=== PATIENT | female | born 1960 | race Caucasian/White ===

== ENCOUNTER 2019-08-12 09:37 | Emergency (ER) | payer OTHER ==
[~2019-08-12] VITALS: Ht 160 cm; Wt 82.6 kg
[~2019-08-12 09:37] MED LIST: PERMETHRIN1 GM MC
[2019-08-12] MEDS ORDERED: AZELASTINE HCL6 ML (09:43)
[2019-08-12] MEDS ORDERED: CRESTOR20 MG (09:43)
[2019-08-12] MEDS ORDERED: DRAMAMINE LESS25 MG (09:44)
[2019-08-12] MEDS ORDERED: AMOX-CLAV 875-1 EACH PO (10:16)
== END 2019-08-12 10:26 | disposition home or self-care (01) ==
LOC: ER 09:37
DX: H66.92 Otitis media, unspecified, left ear (principal)

== ENCOUNTER 2019-08-19 23:55 | Emergency (ER) | payer OTHER ==
[~2019-08-19] VITALS: Ht 165.1 cm; Wt 82.6 kg
[~2019-08-19 23:55] MED LIST changes: +AMOX-CLAV 875-1 EACH PO; +AZELASTINE HCL6 ML; +CRESTOR20 MG; +DRAMAMINE LESS25 MG
== END 2019-08-20 12:53 | disposition home or self-care (01) ==
LOC: ER 23:55
DX: K57.32 Diverticulitis of large intestine without perforation or abscess without bleeding (principal); K76.0 Fatty (change of) liver, not elsewhere classified; H66.92 Otitis media, unspecified, left ear; R11.0 Nausea; R10.32 Left lower quadrant pain; R19.7 Diarrhea, unspecified

== ENCOUNTER 2022-01-31 12:30 | Emergency (ER) | payer OTHER ==
[~2022-01-31] VITALS: Ht 167.6 cm; Wt 87.1 kg
[2022-01-31] MEDS ORDERED: ACID REDUCER20 M1 (12:53)
[2022-01-31] MEDS ORDERED: MECLIZINE HCL25 MG PO (12:54)
[2022-01-31] MEDS ORDERED: FLONASE16 GM NS (12:55)
== END 2022-01-31 15:44 | disposition home or self-care (01) ==
LOC: ER 12:30
DX: M94.0 Chondrocostal junction syndrome [Tietze] (principal); I10 Essential (primary) hypertension

== ENCOUNTER 2023-01-02 08:18 | Emergency (ER) | payer OTHER ==
[~2023-01-02] VITALS: Ht 167.6 cm; Wt 87.1 kg
[~2023-01-02 08:18] MED LIST changes: +ACID REDUCER20 M1; +FLONASE16 GM NS; +MECLIZINE HCL25 MG PO
[2023-01-02] MEDS ORDERED: LIPOFEN150 MG (08:29)
[2023-01-02] MEDS ORDERED: MONTELUKAST SODI4 M1 (08:29)
[2023-01-02] MEDS ORDERED: BENTYL10 MG/1 ML (08:30)
[2023-01-02] MEDS ORDERED: TOPROL XL25 M1 (08:31)
[2023-01-02] MEDS ORDERED: MESALAMINE800 MG (08:31)
== END 2023-01-02 13:10 | disposition home or self-care (01) ==
LOC: ER 08:18
DX: T54.91XA Toxic effect of unspecified corrosive substance, accidental (unintentional), initial encounter (principal); J45.998 Other asthma; Y92.9 Unspecified place or not applicable; Z88.6 Allergy status to analgesic agent; E78.00 Pure hypercholesterolemia, unspecified; I10 Essential (primary) hypertension

== ENCOUNTER 2023-01-18 08:49 | Emergency (ER) | payer OTHER ==
[~2023-01-18] VITALS: Ht 167.6 cm; Wt 84.4 kg
[~2023-01-18 08:49] MED LIST changes: +BENTYL10 MG/1 ML; +LIPOFEN150 MG; +MESALAMINE800 MG; +MONTELUKAST SODI4 M1; +TOPROL XL25 M1
[2023-01-18] MEDS ORDERED: CIPRO500 MG PO (12:12)
[2023-01-18] MEDS ORDERED: METRONIDAZOLE500 MG PO (12:12)
[2023-01-18] MEDS ORDERED: INTESTINEX680 M1 PO (12:12)
== END 2023-01-18 12:49 | disposition home or self-care (01) ==
LOC: ER 08:49
DX: K57.92 Diverticulitis of intestine, part unspecified, without perforation or abscess without bleeding (principal); R10.12 Left upper quadrant pain; Z88.6 Allergy status to analgesic agent

== ENCOUNTER 2024-11-08 09:22 | Emergency (ER) | payer OTHER ==
[~2024-11-08] VITALS: Ht 167.6 cm; Wt 75.7 kg
[~2024-11-08 09:22] MED LIST changes: +CIPRO500 MG PO; +INTESTINEX680 M1 PO; +METRONIDAZOLE500 MG PO
[2024-11-08 11:25] LABS: HEMATOCRIT 41.6 % (36.0-45.00); HEMOGLOBIN 13.7 g/dL (12.0-15.00); MEAN CELL VOLUME 83.4 fL (80.00-100.00); MEAN CORPUSCULAR HEMOGLOBIN 27.5 pg (27.00-32.0); MEAN CORPUSCULAR HGB CONC 32.9 g/dl (32.0-36.0); PLATELET COUNT 242 K/uL (150-450); RED BLOOD COUNT 4.99 M/uL (4.00-6.00); RED CELL DISTRIBUTION WIDTH 13.2 % (11.5-14.5)
[2024-11-08] MEDS ORDERED: METHYLPREDNISOLONE SOD SUCC 125 MG VIAL ONE (13:22)
[2024-11-08] MEDS ORDERED: METHYLPREDNISOLONE SOD SUCC 125 MG VIAL IM ONE (13:30)
[2024-11-08] MEDS ORDERED: IPRATROPIUM/ALBUTEROL SULFATE 3 ML AMPUL.NEB IH SCH (13:30)
[2024-11-08] MEDS ORDERED: METHYLPREDNISOLONE SOD SUCC 125 MG VIAL IV ONE (13:30)
[2024-11-08] MEDS ORDERED: IPRATROPIUM/ALBUTEROL SULFATE 3 ML AMPUL.NEB IH ONE (14:11)
[2024-11-08] MEDS ORDERED: ZITHROMAX500 MG PO (16:51)
[2024-11-08] MEDS ORDERED: MEDROLPACK PO (16:51)
[2024-11-08] MEDS ORDERED: MONTELUKAST SOD10 MG PO (16:52)
[2024-11-08] MEDS ORDERED: TUSNEL DM LIQU473 ML PO (16:54)
== END 2024-11-08 17:05 | disposition home or self-care (01) ==
LOC: ER 09:24
PROVIDERS: General Practice
DX: J06.9 Acute upper respiratory infection, unspecified (principal); R05.9 Cough, unspecified; Z20.822 Contact with and (suspected) exposure to COVID-19; Z88.6 Allergy status to analgesic agent
CPT/HCPCS: 36415; 71045; 94640; 96365; 96372; 99283; J3490 ×2

== ENCOUNTER 2025-01-08 12:03 | Emergency (ER) | payer OTHER ==
[~2025-01-08] VITALS: Ht 167.6 cm; Wt 73.5 kg
[~2025-01-08 12:03] MED LIST changes: +MEDROLPACK PO; +MONTELUKAST SOD10 MG PO; +TUSNEL DM LIQU473 ML PO; +ZITHROMAX500 MG PO
[2025-01-08] MEDS ORDERED: ORPHENADRINE CITRATE 30 MG/ML AMPUL IM STA (14:22)
[2025-01-08] MEDS ORDERED: KETOROLAC TROMETHAMINE 30 MG VIAL IM STA (14:22)
[2025-01-08] MEDS ORDERED: DEXAMETHASONE SODIUM PHOSPHATE 4 MG/ML VIAL IM STA (14:22)
[2025-01-08] MEDS ORDERED: ORPHENADRINE CITRATE 30 MG/ML AMPUL ONE (14:39)
[2025-01-08] MEDS ORDERED: DEXAMETHASONE SODIUM PHOSPHATE 4 MG/ML VIAL ONE (14:39)
[2025-01-08] MEDS ORDERED: KETOROLAC TROMETHAMINE 30 MG VIAL ONE (14:39)
== END 2025-01-08 16:07 | disposition home or self-care (01) ==
LOC: ER 12:05
DX: M75.30 Calcific tendinitis of unspecified shoulder (principal); I10 Essential (primary) hypertension; Z88.5 Allergy status to narcotic agent; Z88.8 Allergy status to other drugs, medicaments and biological substances
CPT/HCPCS: 73030; 73060; 96372; 99283; J1100; J1885; J2360

== ENCOUNTER 2025-07-07 13:47 | Emergency (ER) | payer OTHER ==
[~2025-07-07] VITALS: Ht 172.7 cm; Wt 72.6 kg
[2025-07-07] MEDS ORDERED: METHYLPREDNISOLONE SOD SUCC 125 MG VIAL ONE (14:44)
[2025-07-07] MEDS ORDERED: FAMOTIDINE/PF 20 MG/2 ML VIAL ONE (14:44)
[2025-07-07] MEDS ORDERED: 0.9 % SODIUM CHLORIDE 500 ML IV ONE (14:45)
[2025-07-07] MEDS ORDERED: FAMOTIDINE/PF 20 MG/2 ML VIAL IV ONE (14:45)
[2025-07-07] MEDS ORDERED: METHYLPREDNISOLONE SOD SUCC 125 MG VIAL IV ONE (14:45)
[2025-07-07 15:13] LABS: BASO % 0.3 % (0.1-1.2); EOS # 0.07 (0.04-0.54); EOS % 0.5 % (0.7-7.0); LYMPH # 3.30 (1.18-3.74); LYMPH % 23.2 % (19.3-53.1); MEAN PLATELET VOLUME 11.50 fl (9.4-12.4); MONO # 0.71 (0.24-0.82); MONO % 5.0 % (4.7-12.5); NEUT # 10.03 (1.56-6.13); NEUT % 70.6 % (34.0-71.1); RED CELL DISTRIBUTION WIDTH 13.5 % (11.6-14.4)
[2025-07-07] MEDS ORDERED: EPINEPHRINE HCL/PF 1 MG/ML AMPUL SUBCUTANEO ONE (16:00)
[2025-07-07] MEDS ORDERED: EPINEPHRINE HCL/PF 1 MG/ML AMPUL ONE (16:13)
[2025-07-07 16:38] LABS: ALT/SGPT 48.0 U/L (12-78); AST/SGOT 48.0 U/L (15-37); BILIRUBIN TOTAL 0.55 mg/dL (0.3-1.2); BUN CREA RATIO 23.0 (7.0-25.0); CREATININE SERUM 0.98 mg/dL (0.55-1.02); GFR 57.32; GLOBULINA 4.0 G/DL (2.4-3.5); GLUCOSE FASTING 118.0 mg/dL (65-100); OSMOLALITY SERUM 290.0 MOSM/KG (275-295)
[2025-07-07 18:09] LABS: COVID-19 AG NEGATIVE (NEGATIVE)
[2025-07-07 18:41] LABS: URINE APPEARANCE Clear; URINE BILIRRUBIN Negative (NEGATIVE); URINE BLOOD Negative; URINE COLOR Yellow; URINE GLUCOSE Negative (NEGATIVE); URINE KETONE Trace (NEGATIVE); URINE LEUKOCYTE Negative; URINE NITRATE Positive; URINE PROTEIN Negative (NEGATIVE); URINE UROBILINOGEN 0.2 E.U./dl
[2025-07-07 18:45] LABS: URINE EPITHELIAL CELLS 70.1 uL (0.0-38.8); URINE RBC 5.7 uL (0.0-20.8); URINE WBC 20.1 uL (0.0-23.2)
[2025-07-07 18:47] LABS: URINE BACTERIA > 9821.5 uL (0.0-1933); URINE CAST 0.14 uL (0.0-1.40)
[2025-07-07] MEDS ORDERED: BACTRIM DS TAB1 EACH PO (19:20)
[2025-07-07] MEDS ORDERED: PEPCID AC20 MG PO (19:20)
[2025-07-07] MEDS ORDERED: MEDROLPACK PO (19:20)
== END 2025-07-07 20:02 ==
LOC: ER 13:47
PROVIDERS: Emergency Medicine; General Practice
DX: N39.0 Urinary tract infection, site not specified (principal); T78.40XA Allergy, unspecified, initial encounter; R21 Rash and other nonspecific skin eruption; Z20.822 Contact with and (suspected) exposure to COVID-19; I10 Essential (primary) hypertension; Z88.5 Allergy status to narcotic agent
CPT/HCPCS: 36415; 71046; 93005; 96365; 96366; 99283; J3490 ×2; J7042